=== PATIENT | male | born 1975 | race Caucasian/White ===

== ENCOUNTER 2020-01-02 14:35 | IRF | payer MEDICARE, SELFPAY ==
[2020-01-02 14:35] VITALS: BMI 31.5
--- NOTE | 2020-01-02 14:35 | ADMGEN ---
This patient, Jm Pillai, was admitted to [facility] Room 226-01. Patient/family oriented to hospital policies and general routines including ID bracelet, bed and alarms, visiting hours, pain management, procedures, bathroom and other care routines, personal items, smoking policy, room service/diet, and visiting hours. Valuables list has been completed. Information on how to activate the Rapid Response Team has been discussed. Patient/Family are encouraged to report perceived risks to care and to ask questions if they do not understand what they are told or what they should do.
[2020-01-02 15:38] VITALS: BMI 31.9
[2020-01-02 16:08] VITALS: BP 143/64; PULSE 63; RESP 20; TEMP 36.4; O2SAT 99
[2020-01-02 16:41] LABS: Glucose Point of Care 102 (65-105)
--- NOTE | 2020-01-02 18:10 | PM.CNNEP ---
Assessment and Plan Assessment and plan (1) End stage renal disease: Code(s): N18.6 - End stage renal disease Status: Chronic Assessment and Plan: HD tomorrow and continue M/W/F schedule follow electrolytes, volume status, and clearance (2) Status post below knee amputation of right lower extremity: Code(s): Z89.511 - Acquired absence of right leg below knee Status: Acute Assessment and Plan: local wound care PT/OT/rehab (3) Anemia: Code(s): D64.9 - Anemia, unspecified Status: Chronic Assessment and Plan: due to ESRD and recent operative intervention check iron studies Epogen with HD follow trend of H/H (4) Hypertension: Code(s): I10 - Essential (primary) hypertension Status: Acute Assessment and Plan: reasonable control at this time follow trend of hemodynamics (5) Renal osteodystrophy: Code(s): N25.0 - Renal osteodystrophy Status: Chronic Assessment and Plan: check phosphorus, calcium, and PTH adjust medications based on paramenters (6) Diabetes: Code(s): E11.9 - Type 2 diabetes mellitus without complications Status: Acute Assessment and Plan: follow accuchecks resume Lantus and SSI Will continue to follow. History of Present Illness Reason for Consult Consult date: 01/02/20 Reason for consult: end stage renal disease Chief Complaint Chief complaint: R BKA History of Present Illness Narrative: The patient is a very pleasant 44-year-old male with an extensive past medical history as outlined below who presented as a transfer from [facility] to the [facility] at [facility] for ongoing medical management as well as therapy following his recent hospitalization. The patient presented to [facility] on December 18, 2019 for worsening right diabetic foot wound. Approximately two weeks before his admission, his right foot wound had been doing reasonably well with ongoing follow-up with wound care. However, he presented to his vascular surgeon's office with worsening appearance in the last 24 hr prior to admission. His wound had deteriorated to the point where there was significant drainage and erythema associated with a malodorous smell. These changes were now progressing/streaking up on the dorsal aspect of his right foot with further deterioration of the wound. He reported no overt fever chills but given his history with wounds on his left lower extremity that resulted in surgical intervention (eventually required a left BKA) and his complex medical history, he was admitted the hospital with concerns for a cellulitis and possible osteomyelitis of his right foot.. During his hospitalization, intervention had already been done to try to improve the circulation in his right lower extremity via an angiogam but it would seem that this failed given the progression of his infection/wound. He was continued on broad-spectrum IV antibiotic therapy and vascular surgery was consulted for therapeutic options. It was discussed with the patient the option of a TMA versus BKA for definitive treatment of what was suspected to be a right foot osteomyelitis. The patient opted for a below-knee amputation as his left foot had the same issues and problems previously in spite of multiple surgical interventions in attempt to salvage that leg and it was ultimately fruitless - he eventually had to have a left BKA at that time with significant improvement following that intervention, hence, he opted for a right below-knee amputation this time around for his current situation. He subsequently underwent the right below-knee amputation without any issue although his hospital course was complicated by the fact that he had significant anemia requiring 5 units in total of packed red blood cell transfusions. Eventually, he was deemed stable not be transferred to next level of care [facility]
[2020-01-02] MEDS: DOCUSATE SODIUM 100 MG CAPSULE PO (18:24)
[2020-01-02] MEDS: GABAPENTIN 300 MG CAPSULE PO (18:24)
[2020-01-02] MEDS: OMEGA 3 POLYUNSAT FATTY ACIDS 1 GM CAP 2 GM PO (18:24)
[2020-01-02] MEDS: ATORVASTATIN 40 MG TABLET 80 MG PO (18:25)
[2020-01-02] MEDS: hydrALAZINE HCL 50 MG TABLET 100 MG PO (18:25)
[2020-01-02] MEDS: INSULIN ASPART (*BKC) 100 UNITS/ML SUB-Q (18:29)
[2020-01-02 21:25] VITALS: PULSE 62
[2020-01-02] MEDS: carvediloL 12.5 MG TABLET 37.5 MG PO (21:25)
[2020-01-02 21:30] LABS: Glucose Point of Care 94 (65-105)
--- NOTE | 2020-01-02 21:30 | PC.NURSE ---
pt accucheck 94 at HS. pt refused to take lantus at this time. updated.
[2020-01-02 22:00] VITALS: BP 172/68; PULSE 97; RESP 16; TEMP 36.5; O2SAT 61
[2020-01-03] VITALS (22 sets, daily range): BP systolic 138–174; BP diastolic 49–89; PULSE 60–72; RESP 14–20; TEMP 36.5–37; O2SAT 97–98; BMI 31.9
[2020-01-03 04:43] LABS: Basophils Absolute Auto 0.1 K/mm3 (0.0-0.1); Basophils Percent Auto 0.6 % (0.2-1.2); Eosinophils Absolute Auto 0.4 K/mm3 (0-0.3); Eosinophils Percent Auto 3.2 % (0-4.4); Immature Granulocyte Absolute 0.05 K/mm3 (0.00-0.031); Immature Granulocyte Percent A 0.5 % (0-0.5); Lymphocytes Absolute Auto 3.05 K/mm3 (0.9-3.2); Lymphocytes Percent Auto 27.7 % (18.3-44.2); Mean Corpuscular Hemoglobin 25.2 pg (26-34); Mean Corpuscular Volume 81.2 fl (80-100); Mean Platelet Volume 8.6 fl (7.4-10.4); Monocytes Absolute Auto 0.8 K/mm3 (0.1-0.6); Neutrophils Absolute Auto 6.7 K/mm3 (1.3-6.7); Platelet Count Result 419 k/mm3 (150-375); Red Blood Count 3.57 M/mm3 (4.6-6.20)
[2020-01-03 04:56] LABS: Albumin Level 3.6 g/dL (3.5-5.1); Anion Gap 13 mmol/L (8-16); Blood Urea Nitrogen 69 mg/dL (9-20); Carbon Dioxide 29 mmol/L (22-30); Chloride 92 mmol/L (98-107); Estimated CRCL calculation 12 ml/min; Estimated Glomerular Filt Rate 6; Glucose 107 mg/dL (75-110); Phosphorus 8.5 mg/dL (2.5-4.5); Potassium 4.6 mmol/L (3.4-5.0); Sodium 134 mmol/L (137-145)
[2020-01-03 05:08] LABS: Parathyroid Intact 134.8 pg/mL (7.5-53.5)
[2020-01-03 05:19] LABS: Iron 35 ug/dL (49-181)
[2020-01-03 05:29] LABS: Percent Iron Saturation 17 % (20-50)
[2020-01-03 05:54] LABS: Hepatitis B Surface Antigen Negative (Negative)
[2020-01-03 05:59] LABS: HAV RESULT Negative (Negative); Hepatitis B Core IgM Result Negative (Negative)
[2020-01-03 06:11] LABS: Hepatitis B Surface Anti Res Negative; Hepatitis C Virus Antibody Negative (Negative)
[2020-01-03 06:12] LABS: Vitamin D 25 Hydroxy 28.2 ng/mL
[2020-01-03 06:13] LABS: Hemoglobin A1C 6.2 % (<5.7)
[2020-01-03 06:59] LABS: Glucose Point of Care 90 (65-105)
[2020-01-03] MEDS: carvediloL 12.5 MG TABLET 37.5 MG PO ×2 (08:43→21:03)
[2020-01-03] MEDS: CALCIUM CARBONATE (OSCAL) 500 MG TABLET PO ×3 (08:43→18:02)
[2020-01-03] MEDS: lisinopriL 20 MG TABLET 40 MG PO (08:44)
[2020-01-03] MEDS: OMEGA 3 POLYUNSAT FATTY ACIDS 1 GM CAP 2 GM PO ×2 (08:44→18:01)
[2020-01-03] MEDS: GABAPENTIN 300 MG CAPSULE PO ×3 (08:45→18:02)
[2020-01-03] MEDS: amLODIPine BESYLATE 5 MG TABLET 10 MG PO (08:45)
[2020-01-03] MEDS: CLOPIDOGREL BISULFATE 75 MG TABLET PO (08:45)
[2020-01-03] MEDS: DOCUSATE SODIUM 100 MG CAPSULE PO ×2 (08:45→18:01)
[2020-01-03] MEDS: hydrALAZINE HCL 50 MG TABLET 100 MG PO ×3 (08:45→18:01)
[2020-01-03] MEDS: CHOLECALCIFEROL 1,000 UNITS TABLET 5000 UNITS PO (08:46)
[2020-01-03] MEDS: INSULIN GLARGINE (*BKC) 100 UNITS/ML 14 UNITS SUB-Q (08:58)
[2020-01-03] MEDS: SEVELAMER CARBONATE 800 MG TABLET PO ×3 (09:25→18:01)
--- NOTE | 2020-01-03 10:30 | PM.IMHP ---
H&P: HPI History of Present Illness Date/Time: 01/03/20 12:50 Chief complaint: R BKA Narrative: Jm Pillai is a 44 year old male The rehab impairment category is 66-urvtlpeuhx-uqgtg extremity The etiologic diagnosis is right nonhealing diabetic foot ulcer. He is status post right BKA This is a 44-year-old who has been here about 4 years ago with a past medical history of type 2 diabetes mellitus with complications including end-stage renal disease on hemodialysis Monday, hypertension, dyslipidemia left BKA with the prosthesis and history of diabetic foot infections peripheral vascular disease and also diabetic retinopathy for which he gets the injections at the local set up person office The patient presented to [facility] on December 18, 2019 after an office with with the Anoop marin. Patient reported that the day prior to his appointment he suffered from fever and chills. Of note the patient has been receiving antibiotics for his right foot infection as he did several years ago for his left foot infection for he had the BKA performed. The patient was initially started as an ulcer on the right big toe and quickly evolved to severe necrosis. A. On presentation to hospital the patient was running a fever up to 102. He also had leukocytosis of 15,600 and hemoglobin of 7.1. The patient was started on IV vancomycin and Zosyn. Vascular surgery was consulted for the nonhealing wound. After discussion about transmetatarsal amputation versus zaapr-brm-lxwl amputation it was decided the patient would undergo a meylm-rmf-wyot amputation and he did on December 23, [address] Calderón. Prior to this the patient had undergone multiple surgeries in the left foot and ultimately ended up with a wrwfq-iof-ujzr amputation before healing to place. He does have a prosthesis for the left BKA. Nephrology was consulted for inpatient dialysis. Patient's hemoglobin dropped to 6.7 he was transfused with 1 unit of packed RBCs. On December 22 hemoglobin dropped again and he was transfused with hemodialysis prior to surgery. He underwent right inlyg-yuy-yrsk amputation December 23, 2019. He is nonweightbearing to the right lower extremity and has a prosthetic leg for the left lower extremity. Postoperatively he has experienced acute blood loss a new acute postoperative pain and leukocytosis. The patient pain is currently controlled with oral analgesics. His anemia is stable with hemoglobin of 8.1. Luke leukocytosis is currently still elevated but is down trending and is being monitored. Patient remains afebrile and wound site looks good. Workup thus far has been negative for acute infection. The patient according to our screen was supposed to have been discharged to rehab and subcutaneous heparin for DVT prophylaxis however I do not see and there discharge orders. The patient has not traveled outside the [place] or had contact with someone who is ill that has traveled outside the [place] in the past 21 days. Patient has not traveled to an area of the [place] that is experiencing no transmission of the Coronavirus and has not had close personal contact with anyone that has. Patient does not have a fever. The patient is not experiencing lower respiratory illness symptoms. Therapy was initiated at the acute care facility and the patient was transferred to us from [facility] on January 02, 2020. The patient has had major surgeries in the 100 days prior to admission. The patient has had no falls in the past year. Patient has had no falls with injury in the past year. Past medical history Glaucoma bilateral eyes and diabetic retinopathy gets steroid injections every 6 weeks to 6 months, diabetic retinopathy cellulitis of the right foot, congestive heart failure, hyperlipidemia, hypertension, peripheral vascular disease, pneumonia in 2017, chronic kidney disease end-stage renal disease on hemodialysis, peripheral neuropathy, type 2 diabetes mellitus, obe
[2020-01-03 11:51] LABS: Glucose Point of Care 92 (65-105)
--- NOTE | 2020-01-03 12:47 | PCPTNOTE ---
Jm Monarodríguez was evaluated for a standard walker on 01/03/2020 by this physical therapist. The walker will resolve patient's mobility limitations and will be used for ADL's within the home. The patient can safely use the walker. ?The walker will resolve the patient?s mobility deficits, including transfers/gait/ADL's.
--- NOTE | 2020-01-03 12:52 | PCPTNOTE ---
Sonia Bell PT completed an inpatient rehab wheelchair evaluation on Jm Pillai on 01/03/2020. The patient is unable to safely and independently ambulate household distances due to their current impairments. Their diagnosis is R BKA and their impairments include decreased strength, decreased endurance, decreased range of motion, decreased balance, lower extremity weakness, and ataxia. Jm's weight bearing status is non weight-bearing on the right lower leg. The patient demonstrates significant functional mobility limitations that impair their ability to participate in mobility-related activities of daily living (MRADLs), including toileting, feeding, dressing, grooming, and bathing in the customary locations in the home. These limitations cannot be sufficiently resolved by the use of an appropriately fitted cane or walker. It is recommended that the patient utilize a wheelchair for functional mobility within the home in order to facilitate optimal safety, independence and participation in all MRADL's and adequately access their home environment on a regular basis. The patient's home provides adequate access between rooms, maneuvering space, and surfaces to accommodate the recommended wheelchair. The use of a wheelchair for functional mobility is strongly recommended and the patient is receptive to using the wheelchair. The use of this wheelchair will significantly improve the patient's ability to participate in MRADLS and the patient will use it on a regular basis in the home. This will facilitate optimal safety, independence, and participation. The patient has demonstrated sufficient physical and mental capabilities needed to safely propel a manual wheelchair that is provided in the home during a typical day. Recommended Wheelchair Frame: standard Recommended Wheelchair Size: 20 x 20 Recommended Wheelchair Cushion: standard Wheelchair Leg Recommendations: elevating detachable - Elevating legrests are recommended because the patient has a musculoskeletal condition or the presence of a cast or brace which prevents 90 degree flexion at the knee. Elevating legrests are recommended because the patient has significant edema of the lower extremities that requires an elevating legrest. - Anti-tippers are recommended due to patient demonstrating increased risk for falls. They would benefit from anti-tippers with added safety and stabilization. Sonia Bell PT ___01/03/20 Evaluating Therapist Date I agree with and certify that the above recommendation is medically necessary. Referring Physician Date I agree with and certify that the above recommendation is medically necessary. Referring Physician Date
--- NOTE | 2020-01-03 13:18 | PCPTNOTE ---
Jm missed 15 minutes of his physical therapy today. Patient had to leave for dialysis.
--- NOTE | 2020-01-03 14:28 | RPD ---
INDIVIDUALIZED PLAN OF CARE FOR Jm Pillai Brief Synthesis of Pre-Admission Screen, Post-Admission Evaluation and Therapy Evaluations: The patient presents to rehab with right non-healing diabetic foot ulcer. Comorbidities include type 2 diabetes mellitus with complications, end-stage renal disease on hemodialysis (M,W,F), hypertension, dyslipidemia, left BKA, diabetic foot infections, peripheral vascular disease, acute postoperative pain, acute blood loss anemia, leukocytosis, congestive heart failure. The complexity of the patient's medical management, nursing, and therapy needs require an inpatient rehab hospital stay with a physician-led interdisciplinary team approach. The patient?s needs will be best met in an intensive program vs. at a lower level of care. The patient requires physician services for medical oversight, management of post-op complications in the setting of present comorbidities, and pain management. Post-op complications have included leukocytosis, acute blood loss anemia and acute postoperative pain with phantom pain. The patient requires nursing services for anticoagulation therapy, DVT prophylactics, IV administration, infection protection, medication management and education, pressure relief, and wound care. Deficits include:ADLs, Balance, Endurance, Family Training/Education, Mobility, Pain Management, ROM, Safety, Strength, and Transfers Chief Nurse Executive/Case Management for: Discharge Planning and Patient/Family Counseling Physical Therapy: 5 days per week for 90 minutes. Treatments may include: Therapeutic Exercise, Gait Training, Neuromuscular Re-education, Transfer Training, Community Reintegration, Bed Mobility, Patient/Family Education, Wheelchair Mobility Group Therapy/Concurrent Therapy Rationales: -Improve attention span during functional activities in a distracted environment. -Enhance problem solving and/or adequate judgment skills during functional activities in a distracted environment. -Promote increased safety awareness in a distracted environment to reduce fall risk with functional tasks, transfers, and ambulation to allow a more safe, self-sufficient return to the home environment. -Improve dynamic balance skills to promote safety and independence with functional activities in a distracted environment for maximum gain. Occupational Therapy: 5 days per week for 90 minutes. Treatments may include: Therapeutic Exercise, Therapeutic Activity, Cognitive Training, Self-Care Transfer Training, Community Reintegration, Home Management, Patient/Family Education, Wheelchair Mobility Training, Energy Conservation Training Group Therapy/Concurrent Therapy Rationales: -Allow therapist to observe and teach generalization and carry-over of skills learned in individual therapy. -Enhance problem solving and sequencing skills during therapeutic activities in a distracted environment. -Promote increased safety awareness in a realistic setting to reduce fall risk with functional tasks due to visual and verbal distractions. -Increase functional level with ADLs, ADL transfers and use of adaptive equipment through therapeutic activities with others while promoting safety to allow a more safe, self-sufficient return home. Medical Prognosis: Good Anticipated Length of Stay: 10 days Rehab Goals: Eating Goal: 06-Independent Oral Hygiene Goal: 06-Independent Toileting Hygiene Goal: 06-Independent Shower/Bathe Self Goal: 06-Independent Upper Body Dressing Goal: 06-Independent Lower Body Dressing Goal: 06-Independent Putting On/Taking Off Footwear Goal: 09-Not Applicable Rolling Left and Right Goal: 06-Independent Sit to Lying Goal: 06-Independent Lying to Sitting on Side of Bed Goal: 06-Independent Sit to Stand Goal: 06-Independent Chair/Wyz-jv-Foehx Transfer Goal: 06-Independent Toilet Transfer Goal: 06-Independent Car Transfer Goal: 06-Independent Walk 10' Goal: 06-Independent Walk 50' with Two Turns Goal: 06-Independent Walk 150' Go
--- NOTE | 2020-01-03 15:02 | P.PNNP_ITS ---
Progress Note: A&P Assessment and Plan (1) End stage renal disease: Code(s): N18.6 - End stage renal disease Status: Chronic Assessment and Plan: * HD today and continue M// schedule * follow electrolytes, volume status, and clearance (2) Status post below knee amputation of right lower extremity: Code(s): Z89.511 - Acquired absence of right leg below knee Status: Acute Assessment and Plan: * local wound care * PT/OT/rehab (3) Anemia: Code(s): D64.9 - Anemia, unspecified Status: Chronic Assessment and Plan: * due to ESRD, recent operative intervention, and iron deficiency * IV venofer with HD (200mg x 5 doses) * Epogen with HD * follow trend of H/H (4) Hypertension: Code(s): I10 - Essential (primary) hypertension Status: Acute Assessment and Plan: * reasonable control at this time * follow trend of hemodynamics (5) Renal osteodystrophy: Code(s): N25.0 - Renal osteodystrophy Status: Chronic Assessment and Plan: * calcium and PTH acceptable * phosphorus elevated * start renvala as phosphate binder * adjust medications based on paramenters (6) Diabetes: Code(s): E11.9 - Type 2 diabetes mellitus without complications Status: Acute Assessment and Plan: * follow accuchecks * resume Lantus and SSI Will continue to follow. Subjective Date/time seen: 01/03/20 15:02 Tolerating dialysis at the time of my visit (seen on HD at ~ 2:50PM); no new issues or problems to report; no events overnight or earlier this AM. Exam Narrative: Exam Narrative: General: WD/WN male/female in NAD Heart: normal S1 and S2; no rub Lungs: clear to auscultation Abdomen: soft, nontender, nondistended, positive bowel sounds Extremities: no cyanosis or clubbing; no edema; s/p bilateral BKAs Skin: warm and dry Objective Data Vital Signs Vital Signs: Vital Signs Temp Pulse Resp BP Pulse Ox 01/03/20 14:45 67 163/77 H 01/03/20 14:30 66 159/75 H 01/03/20 14:15 66 156/75 H 01/03/20 14:00 65 148/72 H 01/03/20 13:45 65 155/73 H 01/03/20 13:40 66 153/72 H 01/03/20 13:25 36.7 C 66 18 155/70 H 01/03/20 08:43 72 01/03/20 05:45 36.5 C 67 14 167/71 H 97 01/02/20 22:00 36.5 C 97 16 172/68 H 61 L 01/02/20 21:25 62 01/02/20 16:08 36.4 C L 63 20 143/64 H 99 Intake/Output Intake/Output: Intake & Output 12/31/19 01/01/20 01/02/20 01/03/20 23:59 23:59 23:59 23:59 Intake Total 240 480 Balance 240 480 Meds/Results Medications: Active Medications Generic Name Dose Route Start Last Admin Trade Name Freq PRN Reason Stop Dose Admin Hydrocodone Bitart/Acetaminophen 1 tab 01/02/20 17:12 [place] 5-325 Mg PO PRN PRN Pain (Scale Score 7-10) Amlodipine Besylate 10 mg 01/03/20 09:00 01/03/20 08:45 Norvasc PO 10 mg DAILY STEVEN Administration Atorvastatin Calcium 80 mg 01/02/20 17:20 01/02/20 21:21 Lipitor PO Not Given HS [facility] Calcium Carbonate 500 mg 01/03/20 08:00 01/03/20 12:38 Oscal 500 Mg PO 500 mg TIDWM [facility] Administra
--- NOTE | 2020-01-03 15:02 | PM.PNNEP ---
Progress Note: A&P Assessment and Plan (1) End stage renal disease: Code(s): N18.6 - End stage renal disease Status: Chronic Assessment and Plan: HD today and continue M/W/F schedule follow electrolytes, volume status, and clearance (2) Status post below knee amputation of right lower extremity: Code(s): Z89.511 - Acquired absence of right leg below knee Status: Acute Assessment and Plan: local wound care PT/OT/rehab (3) Anemia: Code(s): D64.9 - Anemia, unspecified Status: Chronic Assessment and Plan: due to ESRD, recent operative intervention, and iron deficiency IV venofer with HD (200mg x 5 doses) Epogen with HD follow trend of H/H (4) Hypertension: Code(s): I10 - Essential (primary) hypertension Status: Acute Assessment and Plan: reasonable control at this time follow trend of hemodynamics (5) Renal osteodystrophy: Code(s): N25.0 - Renal osteodystrophy Status: Chronic Assessment and Plan: calcium and PTH acceptable phosphorus elevated start renvala as phosphate binder adjust medications based on paramenters (6) Diabetes: Code(s): E11.9 - Type 2 diabetes mellitus without complications Status: Acute Assessment and Plan: follow accuchecks resume Lantus and SSI Will continue to follow. Subjective Date/time seen: 01/03/20 15:02 Tolerating dialysis at the time of my visit (seen on HD at ~ 2:50PM); no new issues or problems to report; no events overnight or earlier this AM. Exam Narrative: Exam Narrative: General: WD/WN male/female in NAD Heart: normal S1 and S2; no rub Lungs: clear to auscultation Abdomen: soft, nontender, nondistended, positive bowel sounds Extremities: no cyanosis or clubbing; no edema; s/p bilateral BKAs Skin: warm and dry Objective Data Vital Signs Vital Signs: Vital Signs Temp Pulse Resp BP Pulse Ox 01/03/20 14:45 67 163/77 H 01/03/20 14:30 66 159/75 H 01/03/20 14:15 66 156/75 H 01/03/20 14:00 65 148/72 H 01/03/20 13:45 65 155/73 H 01/03/20 13:40 66 153/72 H 01/03/20 13:25 36.7 C 66 18 155/70 H 01/03/20 08:43 72 01/03/20 05:45 36.5 C 67 14 167/71 H 97 01/02/20 22:00 36.5 C 97 16 172/68 H 61 L 01/02/20 21:25 62 01/02/20 16:08 36.4 C L 63 20 143/64 H 99 Intake/Output Intake/Output: Intake & Output 12/31/19 01/01/20 01/02/20 01/03/20 23:59 23:59 23:59 23:59 Intake Total 240 480 Balance 240 480 Meds/Results Medications: Active Medications Generic Name Dose Route Start Last Admin Trade Name Freq PRN Reason Stop Dose Admin Hydrocodone Bitart/Acetaminophen 1 tab 01/02/20 17:12 [place] 5-325 Mg PO PRN PRN Pain (Scale Score 7-10) Amlodipine Besylate 10 mg 01/03/20 09:00 01/03/20 08:45 Norvasc PO 10 mg DAILY STEVEN Administration Atorvastatin Calcium 80 mg 01/02/20 17:20 01/02/20 21:21 Lipitor PO Not Given HS STEVEN Calcium Carbonate 500 mg 01/03/20 08:00 01/03/20 12:38 Oscal 500 Mg PO 500 mg TIDWM STEVEN Administration Carvedilol 37.5 mg 01/02/20 21:00 01/03/20 08:43 Coreg PO 37.5 mg Q12HR STEVEN Administration Clopidogrel Bisulfate 75 mg 01/03/20 09:00 01/03/20 08:45 Plavix PO 75 mg DAILY STEVEN Administration Dextrose 12.5 gm 01/02/20 15:41 Dextrose 50% Syringe IV PUSH PRN PRN Hypoglycemia Protocol Docusate Sodium 100 mg 01/02/20 17:25 01/03/20 08:45 Colace Capsule PO 100 mg BID STEVEN Administration Epoetin Chan-epbx 10,000 units 01/03/20 19:09 Retacrit IV PUSH 01/03/20 19:10 ONCE ONE Fish Oil 2 gm 01/02/20 17:25 01/03/20 08:44 Lovaza PO 2 gm BID STEVEN Administration Furosemide 40 mg 01/04/20 09:00 Lasix Tablet PO [id number] STEVEN Gabapentin 300 mg 01/02/20 17:25 01/03/20 12:37 Neurontin PO 300 mg T
--- NOTE | 2020-01-03 15:09 | PCOTNOTE ---
Pt was unable to receive full minutes for OT services on this date due to leaving for dialysis, with pt only able to get 58 minutes total for OT today. Will continue per POC duration and frequency tomorrow.
[2020-01-03] MEDS: EPOETIN ALFA-EPBX 10,000 UNITS/ML VIAL 10000 UNITS IV PUSH (15:44)
[2020-01-03 18:08] LABS: Glucose Point of Care 91 (65-105)
[2020-01-03] MEDS: ATORVASTATIN 40 MG TABLET 80 MG PO (21:03)
[2020-01-03 21:11] LABS: Glucose Point of Care 106 (65-105)
--- NOTE | 2020-01-03 21:18 | PC.NURSE ---
accuchecks in 's today, now 106- pt refuses anjana alvarenga notifstacey
[2020-01-04 05:53] VITALS: BP 134/60; PULSE 62; RESP 18; TEMP 36.6; O2SAT 93
[2020-01-04 06:51] LABS: Glucose Point of Care 93 (65-105)
[2020-01-04] MEDS: CALCIUM CARBONATE (OSCAL) 500 MG TABLET PO ×3 (09:11→18:37)
[2020-01-04 09:12] VITALS: PULSE 62
[2020-01-04] MEDS: SEVELAMER CARBONATE 800 MG TABLET PO ×3 (09:12→18:39)
[2020-01-04] MEDS: amLODIPine BESYLATE 5 MG TABLET 10 MG PO (09:12)
[2020-01-04] MEDS: carvediloL 12.5 MG TABLET 37.5 MG PO ×2 (09:12→21:02)
[2020-01-04] MEDS: CLOPIDOGREL BISULFATE 75 MG TABLET PO (09:13)
[2020-01-04] MEDS: CHOLECALCIFEROL 1,000 UNITS TABLET 5000 UNITS PO (09:13)
[2020-01-04] MEDS: FUROSEMIDE 40 MG TABLET PO (09:13)
[2020-01-04] MEDS: DOCUSATE SODIUM 100 MG CAPSULE PO ×2 (09:13→18:37)
[2020-01-04] MEDS: hydrALAZINE HCL 50 MG TABLET 100 MG PO ×3 (09:14→18:38)
[2020-01-04] MEDS: lisinopriL 20 MG TABLET 40 MG PO (09:14)
[2020-01-04] MEDS: GABAPENTIN 300 MG CAPSULE PO ×3 (09:14→18:38)
[2020-01-04] MEDS: OMEGA 3 POLYUNSAT FATTY ACIDS 1 GM CAP 2 GM PO ×2 (09:14→18:38)
[2020-01-04 12:24] LABS: Glucose Point of Care 93 (65-105)
--- NOTE | 2020-01-04 12:58 | WPDNEURORHBP ---
Subjective Date/time seen: 01/04/20 12:58 44 years old young male admitted to the rehab for the right BKA for nonhealing diabetic foot ulcer in addition to the history of 1. Type 2 diabetes mellitus 2. End-stage renal disease requiring hemodialysis on Monday 3. Hypertension 4. Dyslipidemia 5. Peripheral vascular disease 6. Diabetic retinopathy requiring the injections. 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 teacher for end-stage renal disease with renal osteodystrophy Review of Systems Review of Systems: All systems reviewed & are unremarkable except as noted in HPI and below Functional Status Ambulation Ability Ability to Ambulate 10 Feet: Minimum Assistance X 1 Ambulation Assistive Devices: Walker, Standard Transfers Ability Ability to Transfer In/Out of Chair: Contact Guard Exam Narrative: Exam Narrative: on examination awake alert cooperative ear nose throat examination normal no drainage mucous membranes moist eyes with bilateral diabetic retinopathy as per the history decreased visual acuity but able to function fairly well neck is supple with no JVD no meningeal signs heart regular lungs clear abdomen is soft normal bowel sounds neurological is awake alert oriented x3 is speech nor dysphasic no dysarthric no dysphonia needs assistance in daily activities of living using the left lower extremity prosthesis to ambulate right BKA is fresh wound is clean Objective Data Vital Signs Vital Signs: Vital Signs - 24 hr 01/03/20 13:25 01/03/20 13:40 01/03/20 13:45 Temperature 36.7 C Pulse Rate 66 66 65 Respiratory Rate 18 Blood Pressure 155/70 H 153/72 H 155/73 H Pulse Oximetry 01/03/20 14:00 01/03/20 14:15 01/03/20 14:30 Temperature 36.8 C Pulse Rate 64 66 66 Respiratory Rate 20 Blood Pressure 138/49 L 156/75 H 159/75 H Pulse Oximetry 98 01/03/20 14:45 01/03/20 15:00 01/03/20 15:15 Temperature Pulse Rate 67 66 65 Respiratory Rate Blood Pressure 163/77 H 152/78 H 167/80 H Pulse Oximetry 01/03/20 15:30 01/03/20 15:45 01/03/20 16:01 Temperature Pulse Rate 67 65 65 Respiratory Rate Blood Pressure 173/57 H 166/80 H 171/78 H Pulse Oximetry 01/03/20 16:15 01/03/20 16:30 01/03/20 16:45 Temperature Pulse Rate 65 66 66 Respiratory Rate Blood Pressure 169/82 H 174/84 H 162/89 H Pulse Oximetry 01/03/20 17:00 01/03/20 17:20 01/03/20 21:03 Temperature Pulse Rate 66 66 66 Respiratory Rate Blood Pressure 164/81 H 168/71 H Pulse Oximetry 01/03/20 21:23 01/04/20 05:53 01/04/20 09:12 Temperature 36.6 C 36.6 C Pulse Rate 60 62 62 Respiratory Rate 20 18 Blood Pressure 145/58 H 134/60 Pulse Oximetry 98 93 Intake/Output Intake/Output: Intake & Output 01/01/20 01/02/20 01/03/20 01/04/20 23:59 23:59 23:59 23:59 Intake Total 240 960 480 Output Total 3400 Balance 240 -2440 480 Meds/Results Medications: Active Medications Generic Name Dose Route Start Last Admin Trade Name Freq PRN Reason Stop Dose Admin Hydrocodone Bitart/Acetaminophen 1 tab 01/02/20 17:12 [place] 5-325 Mg PO PRN PRN Pain (Scale Score 7-10) Amlodipine Besylate 10 mg 01/03/20 09:00 01/04/20 09:12 Norvasc PO 10 mg DAILY STEVEN Administration Atorvastatin Calcium 80 mg 01/02/20 17:20 01/03/20 21:03 Lipitor PO 80 mg HS STEVEN Administration Calcium Carbonate 500 mg 01/03/20 08:00 01/04/20 12:48 Oscal 500 Mg PO 500 mg TIDWM STEVEN Administration Carvedilol 37.5 mg 01/02/20 21:00 01/04/20 09:12 Coreg PO 37.5 mg Q12HR STEVEN Administration Clopidogrel Bisulfate 75 mg 01/03/20 09:00 01/04/20 09:13 Plavix PO 75 mg DAILY STEVEN Administration Dextrose 12.5 gm 01/02/20 15:41 Dextrose 50% Syringe IV PUSH PRN PRN Hypoglycemia Protocol Docusate Sodium 100 mg 01/02/20 17:25 01/04/20 09:13 Colace Capsule PO 100 mg BID STEVEN Administration Fish Oil 2 gm 01/02/20 17:25 0
[2020-01-04 14:00] VITALS: BP 147/56; PULSE 68; RESP 16; TEMP 36.6; O2SAT 96
[2020-01-04 17:10] LABS: Glucose Point of Care 99 (65-105)
[2020-01-04 21:02] VITALS: PULSE 68
[2020-01-04] MEDS: ATORVASTATIN 40 MG TABLET 80 MG PO (21:02)
[2020-01-04 21:04] LABS: Glucose Point of Care 109 (65-105)
[2020-01-04 22:00] VITALS: BP 151/62; PULSE 74; RESP 18; TEMP 37; O2SAT 97
--- NOTE | 2020-01-04 22:38 | PC.NURSE ---
accucheck 109 at hs- refuses romy- dr mei aware
[2020-01-05 05:15] VITALS: BP 135/57; PULSE 62; RESP 18; TEMP 36.5; O2SAT 95
[2020-01-05 06:46] LABS: Glucose Point of Care 103 (65-105)
[2020-01-05 09:00] VITALS: PULSE 62
[2020-01-05] MEDS: amLODIPine BESYLATE 5 MG TABLET 10 MG PO (09:00)
[2020-01-05] MEDS: carvediloL 12.5 MG TABLET 37.5 MG PO ×2 (09:00→22:20)
[2020-01-05] MEDS: lisinopriL 20 MG TABLET 40 MG PO (09:00)
[2020-01-05] MEDS: SEVELAMER CARBONATE 800 MG TABLET PO ×3 (09:00→17:43)
[2020-01-05] MEDS: DOCUSATE SODIUM 100 MG CAPSULE PO ×2 (09:00→17:42)
[2020-01-05] MEDS: hydrALAZINE HCL 50 MG TABLET 100 MG PO ×3 (09:02→17:41)
[2020-01-05] MEDS: CALCIUM CARBONATE (OSCAL) 500 MG TABLET PO ×3 (09:02→17:41)
[2020-01-05] MEDS: CHOLECALCIFEROL 1,000 UNITS TABLET 5000 UNITS PO (09:02)
[2020-01-05] MEDS: FUROSEMIDE 40 MG TABLET PO (09:02)
[2020-01-05] MEDS: GABAPENTIN 300 MG CAPSULE PO ×3 (09:03→17:42)
[2020-01-05] MEDS: CLOPIDOGREL BISULFATE 75 MG TABLET PO (09:03)
[2020-01-05] MEDS: OMEGA 3 POLYUNSAT FATTY ACIDS 1 GM CAP 2 GM PO ×2 (09:04→17:42)
--- NOTE | 2020-01-05 11:49 | PC.NURSE ---
Late entry for 01/04/20: Per Dr. Ortiz, continue to monitor blood sugars for a few days; has been running 90-110s so we have been holding both doses of Lantus, which patient states he does as well at home and Dr. Ortiz is aware of and approved.
[2020-01-05 12:04] LABS: Glucose Point of Care 114 (65-105)
[2020-01-05 14:00] VITALS: BP 132/53; PULSE 64; RESP 20; TEMP 36.6; O2SAT 100
[2020-01-05 17:06] LABS: Glucose Point of Care 138 (65-105)
[2020-01-05 20:20] LABS: Glucose Point of Care 117 (65-105)
[2020-01-05 22:00] VITALS: BP 162/57; PULSE 66; RESP 16; TEMP 36.1; O2SAT 99
[2020-01-05 22:20] VITALS: PULSE 66
[2020-01-05] MEDS: ATORVASTATIN 40 MG TABLET 80 MG PO (22:20)
[2020-01-06] VITALS (20 sets, daily range): BP systolic 132–178; BP diastolic 57–85; PULSE 60–67; RESP 16–18; TEMP 36.3–37; O2SAT 97–100
[2020-01-06 07:16] LABS: Glucose Point of Care 98 (65-105)
[2020-01-06] MEDS: CALCIUM CARBONATE (OSCAL) 500 MG TABLET PO ×3 (09:26→18:18)
[2020-01-06] MEDS: SEVELAMER CARBONATE 800 MG TABLET PO ×3 (09:26→18:19)
[2020-01-06] MEDS: carvediloL 12.5 MG TABLET 37.5 MG PO ×2 (09:28→21:06)
[2020-01-06] MEDS: amLODIPine BESYLATE 5 MG TABLET 10 MG PO (09:28)
[2020-01-06] MEDS: CHOLECALCIFEROL 1,000 UNITS TABLET 5000 UNITS PO (09:29)
[2020-01-06] MEDS: DOCUSATE SODIUM 100 MG CAPSULE PO ×2 (09:30→18:18)
[2020-01-06] MEDS: GABAPENTIN 300 MG CAPSULE PO ×3 (09:30→18:19)
[2020-01-06] MEDS: CLOPIDOGREL BISULFATE 75 MG TABLET PO (09:30)
[2020-01-06] MEDS: OMEGA 3 POLYUNSAT FATTY ACIDS 1 GM CAP 2 GM PO ×2 (09:31→18:19)
[2020-01-06] MEDS: hydrALAZINE HCL 50 MG TABLET 100 MG PO ×3 (09:31→18:19)
[2020-01-06] MEDS: lisinopriL 20 MG TABLET 40 MG PO (09:31)
[2020-01-06] MEDS: INSULIN GLARGINE (*BKC) 100 UNITS/ML 14 UNITS SUB-Q (09:39)
--- NOTE | 2020-01-06 10:31 | WPDNEURORHBP ---
Subjective Date/time seen: 01/06/20 10:31 44 years old with right BKA for nonhealing diabetic foot ulcer in addition to history of type 2 diabetes mellitus, end-stage renal disease requiring hemodialysis, dyslipidemia, peripheral vascular disease, and diabetic retinopathy requiring local intra-ocular injections and also end-stage renal disease with renal osteodystrophy Review of Systems Review of Systems: All systems reviewed & are unremarkable except as noted in HPI and below Functional Status Ambulation Ability Ability to Ambulate 10 Feet: Contact Guard Ambulation Assistive Devices: Walker, Standard Transfers Ability Ability to Transfer In/Out of Chair: Independent Exam Narrative: Exam Narrative: on examination awake alert ear nose throat examination normal no mucus drainage neck is supple with no JVD normal range of motion heart regular lungs clear neuro examination is essentially unchanged Objective Data Vital Signs Vital Signs: Vital Signs - 24 hr 01/05/20 14:00 01/05/20 22:00 01/05/20 22:20 Temperature 36.6 C 36.1 C L Pulse Rate 64 66 66 Respiratory Rate 20 16 Blood Pressure 132/53 L 162/57 H Pulse Oximetry 100 99 01/06/20 06:00 01/06/20 09:28 Temperature 36.8 C Pulse Rate 67 67 Respiratory Rate 16 Blood Pressure 142/67 H Pulse Oximetry 97 Intake/Output Intake/Output: Intake & Output 01/03/20 01/04/20 01/05/20 01/06/20 23:59 23:59 23:59 23:59 Intake Total 960 1080 720 480 Output Total 3400 Balance -2440 1080 720 480 Meds/Results Medications: Active Medications Generic Name Dose Route Start Last Admin Trade Name Freq PRN Reason Stop Dose Admin Hydrocodone Bitart/Acetaminophen 1 tab 01/02/20 17:12 [place] 5-325 Mg PO PRN PRN Pain (Scale Score 7-10) Amlodipine Besylate 10 mg 01/03/20 09:00 01/06/20 09:28 Norvasc PO 10 mg DAILY STEVEN Administration Atorvastatin Calcium 80 mg 01/02/20 17:20 01/05/20 22:20 Lipitor PO 80 mg HS STEVEN Administration Calcium Carbonate 500 mg 01/03/20 08:00 01/06/20 09:26 Oscal 500 Mg PO 500 mg TIDWM STEVEN Administration Carvedilol 37.5 mg 01/02/20 21:00 01/06/20 09:28 Coreg PO 37.5 mg Q12HR STEVEN Administration Clopidogrel Bisulfate 75 mg 01/03/20 09:00 01/06/20 09:30 Plavix PO 75 mg DAILY STEVEN Administration Dextrose 12.5 gm 01/02/20 15:41 Dextrose 50% Syringe IV PUSH PRN PRN Hypoglycemia Protocol Docusate Sodium 100 mg 01/02/20 17:25 01/06/20 09:30 Colace Capsule PO 100 mg BID STEVEN Administration Epoetin Chan-epbx 10,000 units 01/06/20 18:45 Retacrit IV PUSH 01/06/20 18:46 ONCE ONE Fish Oil 2 gm 01/02/20 17:25 01/06/20 09:31 Lovaza PO 2 gm BID STEVEN Administration Furosemide 40 mg 01/04/20 09:00 01/05/20 09:02 Lasix Tablet PO 40 mg [id number] STEVEN Administration Gabapentin 300 mg 01/02/20 17:25 01/06/20 09:30 Neurontin PO 300 mg TID STEVEN Administration Glucagon 1 mg 01/02/20 15:41 Glucagon For Inj IM PRN PRN Hypoglycemia Protocol Glucose 15 gm 01/02/20 15:41 Glutose 15 PO PRN PRN Hypoglycemia Protocol Hydralazine HCl 100 mg 01/02/20 17:25 01/06/20 09:31 Apresoline Tablet PO 100 mg TID STEVEN Administration Dextrose 1,000 mls @ 100 mls/hr 01/02/20 15:41 Dextrose 5% 1,000 Ml IVPB PRN PRN Hypoglycemia Protocol Albumin Human 50 mls @ 999 mls/hr 01/03/20 07:09 Albutein IVPB 02/02/20 07:10 Q10M PRN HYPOTENSION Iron Sucrose 200 mg/ Sodium 60 mls @ 220 mls/hr 01/03/20 19:15 Chloride IVPB 01/13/20 10:17 [id number] [facility] Insulin Aspart 2 - 5 units 01/02/20 17:00 01/06/20 09:26 Novolog SUB-Q Not Given TIDWM [facility] Protocol Insulin Glargine 14 units 01/02/20 21:00 01/06/20 09:39 Lantus SUB-Q 14 units Q12H STEVEN Administration Lisinopril 40 mg 01/03/20 09:00 01/06/20 09:31 [place]
[2020-01-06 12:00] LABS: Glucose Point of Care 113 (65-105)
--- NOTE | 2020-01-06 16:37 | P.PNNP_ITS ---
Progress Note: A&P Assessment and Plan (1) End stage renal disease: Code(s): N18.6 - End stage renal disease Status: Chronic Assessment and Plan: * HD today and continue M// schedule * follow electrolytes, volume status, and clearance (2) Status post below knee amputation of right lower extremity: Code(s): Z89.511 - Acquired absence of right leg below knee Status: Acute Assessment and Plan: * local wound care * PT/OT/rehab (3) Anemia: Code(s): D64.9 - Anemia, unspecified Status: Chronic Assessment and Plan: * due to ESRD, recent operative intervention, and iron deficiency * IV venofer with HD (200mg x 5 doses) * Epogen with HD * follow trend of H/H (4) Hypertension: Code(s): I10 - Essential (primary) hypertension Status: Acute Assessment and Plan: * reasonable control at this time * follow trend of hemodynamics (5) Renal osteodystrophy: Code(s): N25.0 - Renal osteodystrophy Status: Chronic Assessment and Plan: * calcium and PTH acceptable * phosphorus elevated by last check * started on renvela as phosphate binder * adjust medications based on paramenters (6) Diabetes: Code(s): E11.9 - Type 2 diabetes mellitus without complications Status: Acute Assessment and Plan: * follow accuchecks * resume Lantus and SSI Will continue to follow. Subjective Date/time seen: 01/06/20 16:37 Tolerating dialysis at the time of my visit (seen on HD at ~ 4:00PM); sleeping comfortably during treatment; no apparent distress noted; working with PT/OT as tolerated; no events overnight or earlier this AM. Exam Narrative: Exam Narrative: General: WD/WN male/female in NAD Heart: normal S1 and S2; no rub Lungs: clear to auscultation Abdomen: soft, nontender, nondistended, positive bowel sounds Extremities: no cyanosis or clubbing; no edema; s/p bilateral BKAs Skin: warm and intact Objective Data Vital Signs Vital Signs: Vital Signs Temp Pulse Resp BP Pulse Ox 01/06/20 16:30 62 159/78 H 01/06/20 16:25 62 156/80 H 01/06/20 16:00 62 150/76 H 01/06/20 15:45 62 143/74 H 01/06/20 15:30 62 144/77 H 01/06/20 15:21 36.3 C L 63 16 148/76 H 01/06/20 15:15 61 150/79 H 01/06/20 15:00 62 157/74 H 01/06/20 14:52 60 146/62 H 01/06/20 14:00 36.3 C L 62 18 132/57 L 100 01/06/20 09:28 67 01/06/20 06:00 36.8 C 67 16 142/67 H 97 01/05/20 22:20 66 01/05/20 22:00 36.1 C L 66 16 162/57 H 99 Intake/Output Intake/Output: Intake & Output 01/03/20 01/04/20 01/05/20 01/06/20 23:59 23:59 23:59 23:59 Intake Total 960 5691 743 1182 Output Total 3400 Balance -2440 7080 897 2706 Meds/Results Medications: Active Medications Generic Name Dose Route Start Last Admin Trade Name Freq PRN Reason Stop Dose Admin Hydrocodone Bitart/Acetaminophen 1 tab 01/02/20 17:12 [place] 5-325 Mg PO PRN PRN Pain (Scale Score 7-10) Amlodipine Besylate 10 mg 01/03/20 09:00 01/06/20 09:28 Norvasc PO 10 mg DAILY STEVEN Administration Atorvastatin Calcium 80 mg 0
--- NOTE | 2020-01-06 16:37 | PM.PNNEP ---
Progress Note: A&P Assessment and Plan (1) End stage renal disease: Code(s): N18.6 - End stage renal disease Status: Chronic Assessment and Plan: HD today and continue M/W/F schedule follow electrolytes, volume status, and clearance (2) Status post below knee amputation of right lower extremity: Code(s): Z89.511 - Acquired absence of right leg below knee Status: Acute Assessment and Plan: local wound care PT/OT/rehab (3) Anemia: Code(s): D64.9 - Anemia, unspecified Status: Chronic Assessment and Plan: due to ESRD, recent operative intervention, and iron deficiency IV venofer with HD (200mg x 5 doses) Epogen with HD follow trend of H/H (4) Hypertension: Code(s): I10 - Essential (primary) hypertension Status: Acute Assessment and Plan: reasonable control at this time follow trend of hemodynamics (5) Renal osteodystrophy: Code(s): N25.0 - Renal osteodystrophy Status: Chronic Assessment and Plan: calcium and PTH acceptable phosphorus elevated by last check started on renvela as phosphate binder adjust medications based on paramenters (6) Diabetes: Code(s): E11.9 - Type 2 diabetes mellitus without complications Status: Acute Assessment and Plan: follow accuchecks resume Lantus and SSI Will continue to follow. Subjective Date/time seen: 01/06/20 16:37 Tolerating dialysis at the time of my visit (seen on HD at ~ 4:00PM); sleeping comfortably during treatment; no apparent distress noted; working with PT/OT as tolerated; no events overnight or earlier this AM. Exam Narrative: Exam Narrative: General: WD/WN male/female in NAD Heart: normal S1 and S2; no rub Lungs: clear to auscultation Abdomen: soft, nontender, nondistended, positive bowel sounds Extremities: no cyanosis or clubbing; no edema; s/p bilateral BKAs Skin: warm and intact Objective Data Vital Signs Vital Signs: Vital Signs Temp Pulse Resp BP Pulse Ox 01/06/20 16:30 62 159/78 H 01/06/20 16:25 62 156/80 H 01/06/20 16:00 62 150/76 H 01/06/20 15:45 62 143/74 H 09/28/20 15:30 62 144/77 H 01/06/20 15:21 36.3 C L 63 16 148/76 H 01/06/20 15:15 61 150/79 H 01/06/20 15:00 62 157/74 H 01/06/20 14:52 60 146/62 H 01/06/20 14:00 36.3 C L 62 18 132/57 L 100 01/06/20 09:28 67 01/06/20 06:00 36.8 C 67 16 142/67 H 97 01/05/20 22:20 66 01/05/20 22:00 36.1 C L 66 16 162/57 H 99 Intake/Output Intake/Output: Intake & Output 01/03/20 01/04/20 01/05/20 01/06/20 23:59 23:59 23:59 23:59 Intake Total 960 1640 312 0475 Output Total 3400 Balance -2440 5966 599 3806 Meds/Results Medications: Active Medications Generic Name Dose Route Start Last Admin Trade Name Freq PRN Reason Stop Dose Admin Hydrocodone Bitart/Acetaminophen 1 tab 01/02/20 17:12 [place] 5-325 Mg PO PRN PRN Pain (Scale Score 7-10) Amlodipine Besylate 10 mg 01/03/20 09:00 01/06/20 09:28 Norvasc PO 10 mg DAILY STEVEN Administration Atorvastatin Calcium 80 mg 01/02/20 17:20 01/05/20 22:20 Lipitor PO 80 mg HS STEVEN Administration Calcium Carbonate 500 mg 01/03/20 08:00 01/06/20 12:04 Oscal 500 Mg PO 500 mg TIDWM STEVEN Administration Carvedilol 37.5 mg 01/02/20 21:00 01/06/20 09:28 Coreg PO 37.5 mg Q12HR STEVEN Administration Clopidogrel Bisulfate 75 mg 01/03/20 09:00 01/06/20 09:30 Plavix PO 75 mg DAILY STEVEN Administration Dextrose 12.5 gm 01/02/20 15:41 Dextrose 50% Syringe IV PUSH PRN PRN Hypoglycemia Protocol Docusate Sodium 100 mg 01/02/20 17:25 01/06/20 09:30 Colace Capsule PO 100 mg BID STEVEN Administration Epoetin Chan-epbx 10,000 units 01/06/20 18:45 Retacrit IV PUSH 01/06/20 18:46 ONCE ONE Fish Oil 2 gm 01/02/20 17:25 01/06/20 09:31 Lo
[2020-01-06] MEDS: EPOETIN ALFA-EPBX 10,000 UNITS/ML VIAL 10000 UNITS IV PUSH (17:14)
[2020-01-06] MEDS: HEPARIN SODIUM 1,000 UNITS/ML VIAL 5000 UNITS (18:00)
[2020-01-06 18:18] LABS: Glucose Point of Care 89 (65-105)
[2020-01-06 20:45] LABS: Glucose Point of Care 91 (65-105)
[2020-01-06] MEDS: ATORVASTATIN 40 MG TABLET 80 MG PO (21:06)
[2020-01-07 05:12] VITALS: BP 150/66; PULSE 70; RESP 18; TEMP 36.6; O2SAT 96
[2020-01-07 06:51] LABS: Glucose Point of Care 91 (65-105)
[2020-01-07] MEDS: SEVELAMER CARBONATE 800 MG TABLET PO ×3 (08:03→17:54)
[2020-01-07] MEDS: CALCIUM CARBONATE (OSCAL) 500 MG TABLET PO ×3 (08:03→17:54)
[2020-01-07 08:04] VITALS: PULSE 70
[2020-01-07] MEDS: CHOLECALCIFEROL 1,000 UNITS TABLET 5000 UNITS PO (08:04)
[2020-01-07] MEDS: carvediloL 12.5 MG TABLET 37.5 MG PO ×2 (08:04→20:40)
[2020-01-07] MEDS: amLODIPine BESYLATE 5 MG TABLET 10 MG PO (08:04)
[2020-01-07] MEDS: OMEGA 3 POLYUNSAT FATTY ACIDS 1 GM CAP 2 GM PO ×2 (08:05→17:54)
[2020-01-07] MEDS: hydrALAZINE HCL 50 MG TABLET 100 MG PO ×3 (08:05→17:54)
[2020-01-07] MEDS: FUROSEMIDE 40 MG TABLET PO (08:06)
[2020-01-07] MEDS: GABAPENTIN 300 MG CAPSULE PO ×3 (08:06→17:54)
[2020-01-07] MEDS: DOCUSATE SODIUM 100 MG CAPSULE PO ×2 (08:14→17:54)
[2020-01-07] MEDS: CLOPIDOGREL BISULFATE 75 MG TABLET PO (08:14)
[2020-01-07] MEDS: lisinopriL 20 MG TABLET 40 MG PO (08:15)
[2020-01-07 12:03] LABS: Glucose Point of Care 104 (65-105)
[2020-01-07 14:00] VITALS: BP 128/51; PULSE 64; RESP 20; TEMP 36.4; O2SAT 94
--- NOTE | 2020-01-07 14:50 | WPDNEURORHBP ---
Subjective Date/time seen: 01/07/20 14:50 Interval history: this 44-year-old diabetic male is here because of right BKA he is doing fairly well and the sugars are stable with holding his insulin he has also dialysis patient and the working well with them making progress denies any headache nausea vomiting chest pain shortness of breath fever chills sore throat Review of Systems Review of Systems: All systems reviewed & are unremarkable except as noted in HPI and below Functional Status Ambulation Ability Ability to Ambulate 10 Feet: Contact Guard Ambulation Assistive Devices: Walker, Standard Transfers Ability Ability to Transfer In/Out of Chair: Minimum Assistance X 1 Exam Const: General: comfortable and no acute distress HENMT: General nose exam: Normal nares present Mouth: Yes moist mucous membranes Eyes: General: appearance normal, both eyes and all related structures Neck: Neck: supple and no JVD Resp: Effort & Inspection: normal respiratory effort Auscultation: clear to auscultation bilaterally Cardio: Rate: regular rate Rhythm: regular rhythm GI: GI Palp: Yes Soft to palpation Auscultation: normal bowel sounds Skin: General skin exam: normal color and no rashes or lesions noted Neuro: Other: patient is awake alert will oriented the right BKA is clean is not any distress making excellent progress in the rehab Extrem: Other: right BKA is clean Psych: Mental Status: mental status grossly normal Objective Data Vital Signs Vital Signs: Vital Signs - 24 hr 01/06/20 14:52 01/06/20 15:00 01/06/20 15:15 Temperature Pulse Rate 60 62 61 Respiratory Rate Blood Pressure 146/62 H 157/74 H 150/79 H Pulse Oximetry 01/06/20 15:21 01/06/20 15:30 01/06/20 15:45 Temperature 36.3 C L Pulse Rate 63 62 62 Respiratory Rate 16 Blood Pressure 148/76 H 144/77 H 143/74 H Pulse Oximetry 01/06/20 16:00 01/06/20 16:25 01/06/20 16:30 Temperature Pulse Rate 62 62 62 Respiratory Rate Blood Pressure 150/76 H 156/80 H 159/78 H Pulse Oximetry 01/06/20 16:45 01/06/20 17:00 01/06/20 17:15 Temperature Pulse Rate 65 63 62 Respiratory Rate Blood Pressure 160/77 H 149/80 H 153/79 H Pulse Oximetry 01/06/20 17:30 01/06/20 17:51 01/06/20 17:59 Temperature 36.3 C L Pulse Rate 63 63 65 Respiratory Rate 16 Blood Pressure 146/62 H 162/85 H 178/85 H Pulse Oximetry 01/06/20 21:06 01/06/20 22:00 01/07/20 05:12 Temperature 36.3 C L 36.6 C Pulse Rate 62 61 70 Respiratory Rate 18 18 Blood Pressure 148/57 H 150/66 H Pulse Oximetry 97 96 01/07/20 08:04 01/07/20 14:00 Temperature 36.4 C L Pulse Rate 70 64 Respiratory Rate 20 Blood Pressure 128/51 L Pulse Oximetry 94 Intake/Output Intake/Output: Intake & Output 01/04/20 01/05/20 01/06/20 01/07/20 23:59 23:59 23:59 23:59 Intake Total 0468 687 9079 360 Output Total 2500 Balance 1080 720 -1180 360 Meds/Results Medications: Active Medications Generic Name Dose Route Start Last Admin Trade Name Freq PRN Reason Stop Dose Admin Hydrocodone Bitart/Acetaminophen 1 tab 01/02/20 17:12 [place] 5-325 Mg PO PRN PRN Pain (Scale Score 7-10) Amlodipine Besylate 10 mg 01/03/20 09:00 01/07/20 08:04 Norvasc PO 10 mg DAILY STEVEN Administration Atorvastatin Calcium 80 mg 01/02/20 17:20 01/06/20 21:06 Lipitor PO 80 mg HS STEVEN Administration Calcium Carbonate 500 mg 01/03/20 08:00 01/07/20 12:45 Oscal 500 Mg PO 500 mg TIDWM STEVEN Administration Carvedilol 37.5 mg 01/02/20 21:00 01/07/20 08:04 Coreg PO 37.5 mg Q12HR STEVEN Administration Clopidogrel Bisulfate 75 mg 01/03/20 09:00 01/07/20 08:14 Plavix PO 75 mg DAILY STEVEN Administration Dextrose 12.5 gm 01/02/20 15:41 Dextrose 50% Syringe IV PUSH PRN PRN Hypoglycemia Protocol Docusate Sodium 100 mg 01/02/20 17:25 01/07/20 08:14 Colace Capsule PO 100 mg
[2020-01-07 17:11] LABS: Glucose Point of Care 126 (65-105)
[2020-01-07 20:00] LABS: Glucose Point of Care 116 (65-105)
[2020-01-07 20:40] VITALS: PULSE 68
[2020-01-07] MEDS: ATORVASTATIN 40 MG TABLET 80 MG PO (20:40)
[2020-01-07 21:21] VITALS: BP 153/72; PULSE 61; RESP 18; TEMP 36.6; O2SAT 98
[2020-01-08] VITALS (22 sets, daily range): BP systolic 156–186; BP diastolic 64–90; PULSE 61–72; RESP 18–20; TEMP 36.3–37.1; O2SAT 98–100
[2020-01-08 06:12] LABS: Glucose Point of Care 107 (65-105)
[2020-01-08] MEDS: CALCIUM CARBONATE (OSCAL) 500 MG TABLET PO ×3 (09:32→17:49)
[2020-01-08] MEDS: amLODIPine BESYLATE 5 MG TABLET 10 MG PO (09:33)
[2020-01-08] MEDS: carvediloL 12.5 MG TABLET 37.5 MG PO ×2 (09:33→23:38)
[2020-01-08] MEDS: SEVELAMER CARBONATE 800 MG TABLET PO ×3 (09:33→17:50)
[2020-01-08] MEDS: DOCUSATE SODIUM 100 MG CAPSULE PO ×2 (09:34→17:49)
[2020-01-08] MEDS: CLOPIDOGREL BISULFATE 75 MG TABLET PO (09:34)
[2020-01-08] MEDS: CHOLECALCIFEROL 1,000 UNITS TABLET 5000 UNITS PO (09:34)
[2020-01-08] MEDS: GABAPENTIN 300 MG CAPSULE PO ×3 (09:34→17:49)
[2020-01-08] MEDS: lisinopriL 20 MG TABLET 40 MG PO (09:35)
[2020-01-08] MEDS: OMEGA 3 POLYUNSAT FATTY ACIDS 1 GM CAP 2 GM PO ×2 (09:35→17:50)
[2020-01-08] MEDS: hydrALAZINE HCL 50 MG TABLET 100 MG PO ×3 (09:35→17:49)
--- NOTE | 2020-01-08 11:44 | PCDIET ---
Nutrition Follow-Up Complete: Nutrition Diagnosis: Increase protein need r/t wound healing as evidence by daily needs of 136g to promote adequate wound healing. Nutrition Goal: Intake of 75% of meal and supplement with focus on protein foods and vitamin A/C rich fruits and veggies to promote optimal wound healing Goal met. Patient consuming 100% of most meals on renal dialysis, diabetic diet with Jovan BID which is appropriate. Last recorded weight is 103.5 kg, decreased from last review. Patient on restricted diet with continued fluid removal in dialysis. Bowel Motility: +BM today per nursing flowsheet. Labs Reviewed: Glu (107) Meds Noted: Oscal, Colace, Retacrit, Lovaza, Lasix, Lantus, Iron Sucrose, Nifirex-150, Renvela, Vitamin D Additional Notes: Right leg incision present post-BKA. No other skin breakdown documented. Will continue to monitor with same goal. Nutrition Monitoring and Evaluation: Follow up in 7 days.
[2020-01-08 12:09] LABS: Glucose Point of Care 105 (65-105)
[2020-01-08 13:29] LABS: Anion Gap 13 mmol/L (8-16); Blood Urea Nitrogen 92 mg/dL (9-20); Calcium 9.5 mg/dL (8.4-10.2); Carbon Dioxide 25 mmol/L (22-30); Chloride 102 mmol/L (98-107); Estimated CRCL calculation 10 ml/min; Estimated Glomerular Filt Rate 6; Glucose 123 mg/dL (75-110); Phosphorus 5.2 mg/dL (2.5-4.5); Potassium 5.5 mmol/L (3.4-5.0); Sodium 140 mmol/L (137-145)
--- NOTE | 2020-01-08 15:28 | P.PNNP_ITS ---
Progress Note: A&P Assessment and Plan (1) End stage renal disease: Code(s): N18.6 - End stage renal disease Status: Chronic Assessment and Plan: * HD today and continue M// schedule * follow electrolytes, volume status, and clearance (2) Status post below knee amputation of right lower extremity: Code(s): Z89.511 - Acquired absence of right leg below knee Status: Acute Assessment and Plan: * local wound care * PT/OT/rehab (3) Anemia: Code(s): D64.9 - Anemia, unspecified Status: Chronic Assessment and Plan: * due to ESRD, recent operative intervention, and iron deficiency * IV venofer with HD (200mg x 5 doses) * Epogen with HD * follow trend of H/H (4) Hypertension: Code(s): I10 - Essential (primary) hypertension Status: Acute Assessment and Plan: * reasonable control at this time * follow trend of hemodynamics (5) Renal osteodystrophy: Code(s): N25.0 - Renal osteodystrophy Status: Chronic Assessment and Plan: * calcium and PTH acceptable * phosphorus elevated by last check * started on renvela as phosphate binder * adjust medications based on paramenters (6) Diabetes: Code(s): E11.9 - Type 2 diabetes mellitus without complications Status: Acute Assessment and Plan: * follow accuchecks * resume Lantus and SSI Will continue to follow. Subjective Date/time seen: 01/08/20 15:28 Seems to be doing well; participating with therapy as tolerated; no apparent distress noted; no events overnight or earlier this AM. Exam Narrative: Exam Narrative: General: WD/WN male/female in NAD Heart: normal S1 and S2; no rub Lungs: clear to auscultation Abdomen: soft, nontender, nondistended, positive bowel sounds Extremities: no cyanosis or clubbing; no edema; s/p bilateral BKAs Skin: no rash or nodules Objective Data Vital Signs Vital Signs: Vital Signs Temp Pulse Resp BP Pulse Ox 01/08/20 09:33 70 01/08/20 06:00 36.4 C L 70 18 156/64 H 98 01/07/20 21:21 36.6 C 61 18 153/72 H 98 01/07/20 20:40 68 Intake/Output Intake/Output: Intake & Output 01/05/20 01/06/20 01/07/20 01/08/20 23:59 23:59 23:59 23:59 Intake Total 720 1320 600 480 Output Total 2500 Balance 720 -1180 600 480 Meds/Results Medications: Active Medications Generic Name Dose Route Start Last Admin Trade Name Freq PRN Reason Stop Dose Admin Hydrocodone Bitart/Acetaminophen 1 tab 01/02/20 17:12 [place] 5-325 Mg PO PRN PRN Pain (Scale Score 7-10) Amlodipine Besylate 10 mg 01/03/20 09:00 01/08/20 09:33 Norvasc PO 10 mg DAILY STEVEN Administration Atorvastatin Calcium 80 mg 01/02/20 17:20 01/07/20 20:40 Lipitor PO 80 mg HS STEVEN Administration Calcium Carbonate 500 mg 01/03/20 08:00 01/08/20 12:39 Oscal 500 Mg PO 500 mg TIDWM STVEEN Administration Carvedilol 37.5 mg 01/02/20 21:00 01/08/20 09:33 Coreg PO 37.5 mg Q12HR STEVEN Administration Clopidogrel Bisulfate 75 mg 01/03/20 09:00 01/08/20 09:34 Plavix PO 75 mg DAILY STEVEN Administration Dextrose 12.5 g
--- NOTE | 2020-01-08 15:28 | PM.PNNEP ---
Progress Note: A&P Assessment and Plan (1) End stage renal disease: Code(s): N18.6 - End stage renal disease Status: Chronic Assessment and Plan: HD today and continue M/W/F schedule follow electrolytes, volume status, and clearance (2) Status post below knee amputation of right lower extremity: Code(s): Z89.511 - Acquired absence of right leg below knee Status: Acute Assessment and Plan: local wound care PT/OT/rehab (3) Anemia: Code(s): D64.9 - Anemia, unspecified Status: Chronic Assessment and Plan: due to ESRD, recent operative intervention, and iron deficiency IV venofer with HD (200mg x 5 doses) Epogen with HD follow trend of H/H (4) Hypertension: Code(s): I10 - Essential (primary) hypertension Status: Acute Assessment and Plan: reasonable control at this time follow trend of hemodynamics (5) Renal osteodystrophy: Code(s): N25.0 - Renal osteodystrophy Status: Chronic Assessment and Plan: calcium and PTH acceptable phosphorus elevated by last check started on renvela as phosphate binder adjust medications based on paramenters (6) Diabetes: Code(s): E11.9 - Type 2 diabetes mellitus without complications Status: Acute Assessment and Plan: follow accuchecks resume Lantus and SSI Will continue to follow. Subjective Date/time seen: 01/08/20 15:28 Seems to be doing well; participating with therapy as tolerated; no apparent distress noted; no events overnight or earlier this AM. Exam Narrative: Exam Narrative: General: WD/WN male/female in NAD Heart: normal S1 and S2; no rub Lungs: clear to auscultation Abdomen: soft, nontender, nondistended, positive bowel sounds Extremities: no cyanosis or clubbing; no edema; s/p bilateral BKAs Skin: no rash or nodules Objective Data Vital Signs Vital Signs: Vital Signs Temp Pulse Resp BP Pulse Ox 01/08/20 09:33 70 01/08/20 06:00 36.4 C L 70 18 156/64 H 98 01/07/20 21:21 36.6 C 61 18 153/72 H 98 01/07/20 20:40 68 Intake/Output Intake/Output: Intake & Output 01/05/20 01/06/20 01/07/20 01/08/20 23:59 23:59 23:59 23:59 Intake Total 720 1320 600 480 Output Total 2500 Balance 720 -1180 600 480 Meds/Results Medications: Active Medications Generic Name Dose Route Start Last Admin Trade Name Freq PRN Reason Stop Dose Admin Hydrocodone Bitart/Acetaminophen 1 tab 01/02/20 17:12 [place] 5-325 Mg PO PRN PRN Pain (Scale Score 7-10) Amlodipine Besylate 10 mg 01/03/20 09:00 01/08/20 09:33 Norvasc PO 10 mg DAILY STEVEN Administration Atorvastatin Calcium 80 mg 01/02/20 17:20 01/07/20 20:40 Lipitor PO 80 mg HS STEVEN Administration Calcium Carbonate 500 mg 01/03/20 08:00 01/08/20 12:39 Oscal 500 Mg PO 500 mg TIDWM STEVEN Administration Carvedilol 37.5 mg 01/02/20 21:00 01/08/20 09:33 Coreg PO 37.5 mg Q12HR STEVEN Administration Clopidogrel Bisulfate 75 mg 01/03/20 09:00 01/08/20 09:34 Plavix PO 75 mg DAILY STEVEN Administration Dextrose 12.5 gm 01/02/20 15:41 Dextrose 50% Syringe IV PUSH PRN PRN Hypoglycemia Protocol Docusate Sodium 100 mg 01/02/20 17:25 01/08/20 09:34 Colace Capsule PO 100 mg BID STEVEN Administration Epoetin Chan-epbx 10,000 units 01/08/20 20:06 Retacrit IV PUSH 01/08/20 20:07 ONCE ONE Fish Oil 2 gm 01/02/20 17:25 01/08/20 09:35 Lovaza PO 2 gm BID STEVEN Administration Furosemide 40 mg 01/04/20 09:00 01/07/20 08:06 Lasix Tablet PO 40 mg [email or web address] STEVEN Administration Gabapentin 300 mg 01/02/20 17:25 01/08/20 12:39 Neurontin PO 300 mg TID STEVEN Administration Glucagon 1 mg 01/02/20 15:41 Glucagon For Inj IM PRN PRN Hypoglycemia Protocol Glucose 15 gm 01/02/20 15:41 Glutose 15 PO PRN PRN Hypog
--- NOTE | 2020-01-08 15:37 | WPDNEURORHBP ---
Subjective Date/time seen: 01/08/20 15:37 Interval history: this 44-year-old gentleman is here because of right BKA has significant underlying medical issues including diabetes mellitus with peripheral neuropathy and also complications from the diabetes is doing fairly well and near goals for acute rehab denies any headache nausea vomiting chest pain shortness of breath fever chills sore throat Review of Systems Review of Systems: All systems reviewed & are unremarkable except as noted in HPI and below Functional Status Ambulation Ability Ability to Ambulate 10 Feet: Contact Guard Ambulation Assistive Devices: Walker, Standard Transfers Ability Ability to Transfer In/Out of Chair: Minimum Assistance X 1 Exam Const: General: comfortable and no acute distress HENMT: General nose exam: Normal nares present Mouth: Yes moist mucous membranes Eyes: General: appearance normal, both eyes and all related structures Neck: Neck: supple and no JVD Resp: Effort & Inspection: normal respiratory effort Auscultation: clear to auscultation bilaterally Cardio: Rate: regular rate Rhythm: regular rhythm GI: GI Palp: Yes Soft to palpation Auscultation: normal bowel sounds Skin: General skin exam: normal color and no rashes or lesions noted Neuro: Other: patient is awake alert well oriented has evidence of the right BKA and evidence of neuropathy and of course peripheral vascular disease Extrem: Other: right BKA is clean Psych: Mental Status: mental status grossly normal Objective Data Vital Signs Vital Signs: Vital Signs - 24 hr 01/07/20 20:40 01/07/20 21:21 01/08/20 06:00 Temperature 36.6 C 36.4 C L Pulse Rate 68 61 70 Respiratory Rate 18 18 Blood Pressure 153/72 H 156/64 H Pulse Oximetry 98 98 01/08/20 09:33 Temperature Pulse Rate 70 Respiratory Rate Blood Pressure Pulse Oximetry Intake/Output Intake/Output: Intake & Output 01/05/20 01/06/20 01/07/20 01/08/20 23:59 23:59 23:59 23:59 Intake Total 720 1320 600 480 Output Total 2500 Balance 720 -1180 600 480 Meds/Results Medications: Active Medications Generic Name Dose Route Start Last Admin Trade Name Freq PRN Reason Stop Dose Admin Hydrocodone Bitart/Acetaminophen 1 tab 01/02/20 17:12 [place] 5-325 Mg PO PRN PRN Pain (Scale Score 7-10) Amlodipine Besylate 10 mg 01/03/20 09:00 01/08/20 09:33 Norvasc PO 10 mg DAILY STEVEN Administration Atorvastatin Calcium 80 mg 01/02/20 17:20 01/07/20 20:40 Lipitor PO 80 mg HS STEVEN Administration Calcium Carbonate 500 mg 01/03/20 08:00 01/08/20 12:39 Oscal 500 Mg PO 500 mg TIDWM STEVEN Administration Carvedilol 37.5 mg 01/02/20 21:00 01/08/20 09:33 Coreg PO 37.5 mg Q12HR STEVEN Administration Clopidogrel Bisulfate 75 mg 01/03/20 09:00 01/08/20 09:34 Plavix PO 75 mg DAILY STEVEN Administration Dextrose 12.5 gm 01/02/20 15:41 Dextrose 50% Syringe IV PUSH PRN PRN Hypoglycemia Protocol Docusate Sodium 100 mg 01/02/20 17:25 01/08/20 09:34 Colace Capsule PO 100 mg BID STEVEN Administration Epoetin Chan-epbx 10,000 units 01/08/20 20:06 Retacrit IV PUSH 01/08/20 20:07 ONCE ONE Fish Oil 2 gm 01/02/20 17:25 01/08/20 09:35 Lovaza PO 2 gm BID STEVEN Administration Furosemide 40 mg 01/04/20 09:00 01/07/20 08:06 Lasix Tablet PO 40 mg [email or web address] STEVEN Administration Gabapentin 300 mg 01/02/20 17:25 01/08/20 12:39 Neurontin PO 300 mg TID STEVEN Administration Glucagon 1 mg 01/02/20 15:41 Glucagon For Inj IM PRN PRN Hypoglycemia Protocol Glucose 15 gm 01/02/20 15:41 Glutose 15 PO PRN PRN Hypoglycemia Protocol Hydralazine HCl 100 mg 01/02/20 17:25 01/08/20 12:39 Apresoline Tablet PO 100 mg TID STEVEN Administration Dextrose 1,000 mls @ 100 mls/hr 01/02/20 15:41 Dextrose 5% 1,000 Ml IVPB PRN PRN Hypogl
[2020-01-08 18:04] LABS: Glucose Point of Care 131 (65-105)
[2020-01-08] MEDS: EPOETIN ALFA-EPBX 10,000 UNITS/ML VIAL 10000 UNITS IV PUSH (20:44)
[2020-01-08] MEDS: IRON SUCROSE COMPLEX 200 MG in SODIUM CHLORIDE 0.9% IV 50 ML 220 MG IVPB (22:15)
[2020-01-08] MEDS: ATORVASTATIN 40 MG TABLET 80 MG PO (23:39)
[2020-01-09] VITALS (8 sets, daily range): BP systolic 120–147; BP diastolic 56–64; PULSE 64–71; RESP 16–20; TEMP 36.3–37.1; O2SAT 96–100
--- NOTE | 2020-01-09 05:36 | PCHDNOTE ---
1915 pt taken down for dialysis per bed on01/07.
[2020-01-09 07:12] LABS: Glucose Point of Care 104 (65-105)
[2020-01-09] MEDS: CALCIUM CARBONATE (OSCAL) 500 MG TABLET PO ×3 (10:02→17:32)
[2020-01-09] MEDS: SEVELAMER CARBONATE 800 MG TABLET PO ×3 (10:07→17:32)
[2020-01-09] MEDS: carvediloL 12.5 MG TABLET 37.5 MG PO ×2 (10:09→21:24)
[2020-01-09] MEDS: amLODIPine BESYLATE 5 MG TABLET 10 MG PO (10:09)
[2020-01-09] MEDS: CHOLECALCIFEROL 1,000 UNITS TABLET 5000 UNITS PO (10:10)
[2020-01-09] MEDS: CLOPIDOGREL BISULFATE 75 MG TABLET PO (10:10)
[2020-01-09] MEDS: GABAPENTIN 300 MG CAPSULE PO ×3 (10:11→17:32)
[2020-01-09] MEDS: DOCUSATE SODIUM 100 MG CAPSULE PO ×2 (10:11→17:32)
[2020-01-09] MEDS: FUROSEMIDE 40 MG TABLET PO (10:11)
[2020-01-09] MEDS: hydrALAZINE HCL 50 MG TABLET 100 MG PO ×3 (10:11→17:32)
[2020-01-09] MEDS: lisinopriL 20 MG TABLET 40 MG PO (10:12)
[2020-01-09] MEDS: OMEGA 3 POLYUNSAT FATTY ACIDS 1 GM CAP 2 GM PO ×2 (10:13→17:32)
[2020-01-09 11:39] LABS: Glucose Point of Care 106 (65-105)
[2020-01-09 18:00] LABS: Glucose Point of Care 112 (65-105)
[2020-01-09] MEDS: ATORVASTATIN 40 MG TABLET 80 MG PO (21:26)
[2020-01-09 22:40] LABS: Glucose Point of Care 104 (65-105)
[2020-01-10] VITALS (17 sets, daily range): BP systolic 113–181; BP diastolic 56–85; PULSE 65–73; RESP 16–20; TEMP 36.1–37; O2SAT 96–98
[2020-01-10 05:08] LABS: Basophils Absolute Auto 0.1 K/mm3 (0.0-0.1); Basophils Percent Auto 1.2 % (0.2-1.2); Eosinophils Absolute Auto 0.4 K/mm3 (0-0.3); Eosinophils Percent Auto 4.3 % (0-4.4); Hematocrit 29.2 % (42.0-52.0); Hemoglobin 9.2 g/dL (14.0-18.0); Immature Granulocyte Absolute 0.03 K/mm3 (0.00-0.031); Immature Granulocyte Percent A 0.3 % (0-0.5); Lymphocytes Percent Auto 38.9 % (18.3-44.2); Mean Corpuscular HGB Conc 31.5 g/dl (32-36); Mean Corpuscular Hemoglobin 25.8 pg (26-34); Mean Corpuscular Volume 81.8 fl (80-100); Mean Platelet Volume 8.7 fl (7.4-10.4); Monocytes Absolute Auto 0.9 K/mm3 (0.1-0.6); Neutrophils Absolute Auto 4.4 K/mm3 (1.3-6.7); Neutrophils Percent Auto 46.3 % (45.5-73.1); Platelet Count Result 378 k/mm3 (150-375); Red Blood Count 3.57 M/mm3 (4.6-6.20); Red Cell Distribution Width 17.1 % (11.5-14.5); White Blood Count 9.5 K/mm3 (4.5-10.0)
[2020-01-10 05:32] LABS: Anion Gap 11 mmol/L (8-16); Blood Urea Nitrogen 72 mg/dL (9-20); Calcium 9.4 mg/dL (8.4-10.2); Carbon Dioxide 29 mmol/L (22-30); Chloride 100 mmol/L (98-107); Estimated CRCL calculation 12 ml/min; Estimated Glomerular Filt Rate 7; Glucose 110 mg/dL (75-110); Sodium 140 mmol/L (137-145)
[2020-01-10 06:34] LABS: Glucose Point of Care 113 (65-105)
[2020-01-10] MEDS: CLOPIDOGREL BISULFATE 75 MG TABLET PO (08:58)
[2020-01-10] MEDS: SEVELAMER CARBONATE 800 MG TABLET PO ×3 (08:58→17:54)
[2020-01-10] MEDS: carvediloL 12.5 MG TABLET 37.5 MG PO (08:58)
[2020-01-10] MEDS: CHOLECALCIFEROL 1,000 UNITS TABLET 5000 UNITS PO (08:58)
[2020-01-10] MEDS: OMEGA 3 POLYUNSAT FATTY ACIDS 1 GM CAP 2 GM PO ×2 (08:58→17:53)
[2020-01-10] MEDS: CALCIUM CARBONATE (OSCAL) 500 MG TABLET PO ×3 (08:58→17:54)
[2020-01-10] MEDS: hydrALAZINE HCL 50 MG TABLET 100 MG PO ×3 (08:58→17:53)
[2020-01-10] MEDS: GABAPENTIN 300 MG CAPSULE PO ×3 (08:58→17:53)
[2020-01-10] MEDS: lisinopriL 20 MG TABLET 40 MG PO (08:58)
[2020-01-10] MEDS: DOCUSATE SODIUM 100 MG CAPSULE PO ×2 (08:59→17:53)
[2020-01-10] MEDS: amLODIPine BESYLATE 5 MG TABLET 10 MG PO (08:59)
[2020-01-10 11:41] LABS: Glucose Point of Care 121 (65-105)
--- NOTE | 2020-01-10 13:30 | WPDNEURORHBP ---
Subjective Date/time seen: 01/10/20 13:30 Interval history: this 44-year-old diabetic male has been here after having had a right BKA is done well in acute rehab has had dialysis Monday is going to be discharged tomorrow medications will be reconciled denies any headache nausea vomiting chest pain shortness of breath fever chills sore throat Review of Systems Review of Systems: All systems reviewed & are unremarkable except as noted in HPI and below Functional Status Ambulation Ability Ability to Ambulate 10 Feet: Contact Guard Ambulation Assistive Devices: Walker, Standard Transfers Ability Ability to Transfer In/Out of Chair: Independent Exam Const: General: comfortable and no acute distress HENMT: General nose exam: Normal nares present Mouth: Yes moist mucous membranes Eyes: General: appearance normal, both eyes and all related structures Neck: Neck: supple and no JVD Resp: Effort & Inspection: normal respiratory effort Auscultation: clear to auscultation bilaterally Cardio: Rate: regular rate Rhythm: regular rhythm GI: GI Palp: Yes Soft to palpation Auscultation: normal bowel sounds Skin: General skin exam: normal color and no rashes or lesions noted Neuro: Other: patient is awake alert well oriented and has improved in over rehab quite well Extrem: Other: right BKA is clean Psych: Mental Status: mental status grossly normal Objective Data Vital Signs Vital Signs: Vital Signs - 24 hr 01/09/20 14:00 01/09/20 21:10 01/09/20 21:24 Temperature 37.1 C Pulse Rate 66 64 66 Respiratory Rate 16 18 Blood Pressure 140/56 L Pulse Oximetry 96 97 01/09/20 22:00 01/10/20 06:00 01/10/20 08:58 Temperature 36.8 C 36.2 C L Pulse Rate 64 65 65 Respiratory Rate 18 18 Blood Pressure 127/58 L 140/62 Pulse Oximetry 97 96 Intake/Output Intake/Output: Intake & Output 01/07/20 01/08/20 01/09/20 01/10/20 23:59 23:59 23:59 23:59 Intake Total 350 441 0168 790 Output Total 3001 300 Balance 600 -2281 1200 490 Meds/Results Medications: Active Medications Generic Name Dose Route Start Last Admin Trade Name Freq PRN Reason Stop Dose Admin Hydrocodone Bitart/Acetaminophen 1 tab 01/02/20 17:12 [place] 5-325 Mg PO PRN PRN Pain (Scale Score 7-10) Amlodipine Besylate 10 mg 01/03/20 09:00 01/10/20 08:59 Norvasc PO 10 mg DAILY STEVEN Administration Atorvastatin Calcium 80 mg 01/02/20 17:20 01/09/20 21:26 Lipitor PO 80 mg HS STEVEN Administration Calcium Carbonate 500 mg 01/03/20 08:00 01/10/20 12:35 Oscal 500 Mg PO 500 mg TIDWM STEVEN Administration Carvedilol 37.5 mg 01/02/20 21:00 01/10/20 08:58 Coreg PO 37.5 mg Q12HR STEVEN Administration Clopidogrel Bisulfate 75 mg 01/03/20 09:00 01/10/20 08:58 Plavix PO 75 mg DAILY STEVEN Administration Dextrose 12.5 gm 01/02/20 15:41 Dextrose 50% Syringe IV PUSH PRN PRN Hypoglycemia Protocol Docusate Sodium 100 mg 01/02/20 17:25 01/10/20 08:59 Colace Capsule PO 100 mg BID STEVEN Administration Fish Oil 2 gm 01/02/20 17:25 01/10/20 08:58 Lovaza PO 2 gm BID STEVEN Administration Furosemide 40 mg 01/04/20 09:00 01/09/20 10:11 Lasix Tablet PO 40 mg [email or web address] STEVEN Administration Gabapentin 300 mg 01/02/20 17:25 01/10/20 12:35 Neurontin PO 300 mg TID STEVEN Administration Glucagon 1 mg 01/02/20 15:41 Glucagon For Inj IM PRN PRN Hypoglycemia Protocol Glucose 15 gm 01/02/20 15:41 Glutose 15 PO PRN PRN Hypoglycemia Protocol Hydralazine HCl 100 mg 01/02/20 17:25 01/10/20 12:35 Apresoline Tablet PO 100 mg TID STEVEN Administration Dextrose 1,000 mls @ 100 mls/hr 01/02/20 15:41 Dextrose 5% 1,000 Ml IVPB PRN PRN Hypoglycemia Protocol Albumin Human 50 mls @ 999 mls/hr 01/03/20 07:09 [place] IVPB 02/02/20 07:10 Q10M PRN HYPOTENSI
--- NOTE | 2020-01-10 15:59 | P.PNNP_ITS ---
Progress Note: A&P Assessment and Plan (1) End stage renal disease: Code(s): N18.6 - End stage renal disease Status: Chronic Assessment and Plan: * HD today and continue M/W/ schedule * follow electrolytes, volume status, and clearance (2) Status post below knee amputation of right lower extremity: Code(s): Z89.511 - Acquired absence of right leg below knee Status: Acute Assessment and Plan: * local wound care * PT/OT/rehab (3) Anemia: Code(s): D64.9 - Anemia, unspecified Status: Chronic Assessment and Plan: * due to ESRD, recent operative intervention, and iron deficiency * IV venofer with HD (200mg x 5 doses) * Epogen with HD * follow trend of H/H (4) Hypertension: Code(s): I10 - Essential (primary) hypertension Status: Acute Assessment and Plan: * reasonable control at this time * follow trend of hemodynamics (5) Renal osteodystrophy: Code(s): N25.0 - Renal osteodystrophy Status: Chronic Assessment and Plan: * calcium and PTH acceptable * phosphorus elevated by last check * started on renvela as phosphate binder * adjust medications based on paramenters (6) Diabetes: Code(s): E11.9 - Type 2 diabetes mellitus without complications Status: Acute Assessment and Plan: * follow accuchecks * resume Lantus and SSI Will continue to follow. Subjective Date/time seen: 01/10/20 15:59 No new issues or problems to report; happy about planned discharge tomorrow; no apparent distress voiced at the time of my visit; dialysis planned later this evening. Exam Narrative: Exam Narrative: General: WD/WN male/female in NAD Heart: normal S1 and S2; no rub Lungs: clear to auscultation Abdomen: soft, nontender, nondistended, positive bowel sounds Extremities: no cyanosis or clubbing; no edema; s/p bilateral BKAs Skin: warm and dry Objective Data Vital Signs Vital Signs: Vital Signs Temp Pulse Resp BP Pulse Ox 01/10/20 14:00 36.4 C 67 18 113/56 L 98 01/10/20 08:58 65 01/10/20 06:00 36.2 C L 65 18 140/62 96 01/09/20 22:00 36.8 C 64 18 127/58 L 97 01/09/20 21:24 66 01/09/20 21:10 64 18 97 Intake/Output Intake/Output: Intake & Output 01/07/20 01/08/20 01/09/20 01/10/20 23:59 23:59 23:59 23:59 Intake Total 267 154 4994 1030 Output Total 3001 300 Balance 600 -2281 1200 730 Meds/Results Medications: Active Medications Generic Name Dose Route Start Last Admin Trade Name Freq PRN Reason Stop Dose Admin Hydrocodone Bitart/Acetaminophen 1 tab 01/02/20 17:12 [place] 5-325 Mg PO PRN PRN Pain (Scale Score 7-10) Amlodipine Besylate 10 mg 01/03/20 09:00 01/10/20 08:59 Norvasc PO 10 mg DAILY STEVEN Administration Atorvastatin Calcium 80 mg 01/02/20 17:20 01/09/20 21:26 Lipitor PO 80 mg HS STEVEN Administration Calcium Carbonate 500 mg 01/03/20 08:00 01/10/20 12:35 Oscal 500 Mg PO 500 mg TIDWM STEVEN Administration Carvedilol 37.5 mg 01/02/20 21:00 01/10/20 08:58 Coreg PO 37.5 mg Q12HR STEVEN Administration Clopidogrel Bisulfate 75
--- NOTE | 2020-01-10 15:59 | PM.PNNEP ---
Progress Note: A&P Assessment and Plan (1) End stage renal disease: Code(s): N18.6 - End stage renal disease Status: Chronic Assessment and Plan: HD today and continue M/W/F schedule follow electrolytes, volume status, and clearance (2) Status post below knee amputation of right lower extremity: Code(s): Z89.511 - Acquired absence of right leg below knee Status: Acute Assessment and Plan: local wound care PT/OT/rehab (3) Anemia: Code(s): D64.9 - Anemia, unspecified Status: Chronic Assessment and Plan: due to ESRD, recent operative intervention, and iron deficiency IV venofer with HD (200mg x 5 doses) Epogen with HD follow trend of H/H (4) Hypertension: Code(s): I10 - Essential (primary) hypertension Status: Acute Assessment and Plan: reasonable control at this time follow trend of hemodynamics (5) Renal osteodystrophy: Code(s): N25.0 - Renal osteodystrophy Status: Chronic Assessment and Plan: calcium and PTH acceptable phosphorus elevated by last check started on renvela as phosphate binder adjust medications based on paramenters (6) Diabetes: Code(s): E11.9 - Type 2 diabetes mellitus without complications Status: Acute Assessment and Plan: follow accuchecks resume Lantus and SSI Will continue to follow. Subjective Date/time seen: 01/10/20 15:59 No new issues or problems to report; happy about planned discharge tomorrow; no apparent distress voiced at the time of my visit; dialysis planned later this evening. Exam Narrative: Exam Narrative: General: WD/WN male/female in NAD Heart: normal S1 and S2; no rub Lungs: clear to auscultation Abdomen: soft, nontender, nondistended, positive bowel sounds Extremities: no cyanosis or clubbing; no edema; s/p bilateral BKAs Skin: warm and dry Objective Data Vital Signs Vital Signs: Vital Signs Temp Pulse Resp BP Pulse Ox 01/10/20 14:00 36.4 C 67 18 113/56 L 98 01/10/20 08:58 65 01/10/20 06:00 36.2 C L 65 18 140/62 96 01/09/20 22:00 36.8 C 64 18 127/58 L 97 10/01/20 21:24 66 01/09/20 21:10 64 18 97 Intake/Output Intake/Output: Intake & Output 01/07/20 01/08/20 01/09/20 01/10/20 23:59 23:59 23:59 23:59 Intake Total 366 554 6846 1030 Output Total 3001 300 Balance 600 -2281 1200 730 Meds/Results Medications: Active Medications Generic Name Dose Route Start Last Admin Trade Name Freq PRN Reason Stop Dose Admin Hydrocodone Bitart/Acetaminophen 1 tab 01/02/20 17:12 [place] 5-325 Mg PO PRN PRN Pain (Scale Score 7-10) Amlodipine Besylate 10 mg 01/03/20 09:00 01/10/20 08:59 Norvasc PO 10 mg DAILY STEVEN Administration Atorvastatin Calcium 80 mg 01/02/20 17:20 01/09/20 21:26 Lipitor PO 80 mg HS STEVEN Administration Calcium Carbonate 500 mg 01/03/20 08:00 01/10/20 12:35 Oscal 500 Mg PO 500 mg TIDWM STEVEN Administration Carvedilol 37.5 mg 01/02/20 21:00 01/10/20 08:58 Coreg PO 37.5 mg Q12HR STEVEN Administration Clopidogrel Bisulfate 75 mg 01/03/20 09:00 01/10/20 08:58 Plavix PO 75 mg DAILY STEVEN Administration Dextrose 12.5 gm 01/02/20 15:41 Dextrose 50% Syringe IV PUSH PRN PRN Hypoglycemia Protocol Docusate Sodium 100 mg 01/02/20 17:25 01/10/20 08:59 Colace Capsule PO 100 mg BID STEVEN Administration Fish Oil 2 gm 01/02/20 17:25 01/10/20 08:58 Lovaza PO 2 gm BID STEVEN Administration Furosemide 40 mg 01/04/20 09:00 01/09/20 10:11 Lasix Tablet PO 40 mg [email or web address]@0900 STEVEN Administration Gabapentin 300 mg 01/02/20 17:25 01/10/20 12:35 Neurontin PO 300 mg TID STEVEN Administration Glucagon 1 mg 01/02/20 15:41 Glucagon For Inj IM PRN PRN Hypoglycemia Protocol Glucose 15 gm 01/02/20 15:41 Glutose 15 PO PRN PRN
[2020-01-10 16:58] LABS: Glucose Point of Care 102 (65-105)
--- NOTE | 2020-01-10 20:44 | PC.NURSE ---
patient off the floor to dialysis
[2020-01-10] MEDS: SODIUM CHLORIDE 0.9% IV 1,000 ML 999 ML IV CONT (20:58)
[2020-01-10 21:41] LABS: Glucose Point of Care 115 (65-105)
[2020-01-10] MEDS: EPOETIN ALFA-EPBX 10,000 UNITS/ML VIAL 10000 UNITS IV PUSH (23:11)
[2020-01-10] MEDS: IRON SUCROSE COMPLEX 200 MG in SODIUM CHLORIDE 0.9% IV 50 ML 220 MG IVPB (23:11)
[2020-01-11 00:15] VITALS: BP 144/76; PULSE 64
[2020-01-11 00:26] VITALS: BP 123/67; PULSE 66
[2020-01-11 00:43] VITALS: BP 156/77; PULSE 66; RESP 16; TEMP 36.4
--- NOTE | 2020-01-11 00:45 | PC.NURSE ---
patient returned to floor 0045 from dialysis
[2020-01-11] MEDS: ATORVASTATIN 40 MG TABLET 80 MG PO (00:50)
[2020-01-11 00:51] VITALS: PULSE 68
[2020-01-11] MEDS: carvediloL 12.5 MG TABLET 37.5 MG PO ×2 (00:51→08:52)
[2020-01-11 05:48] LABS: Glucose Point of Care 89 (65-105)
[2020-01-11 06:00] VITALS: BP 144/72; PULSE 62; RESP 18; TEMP 36; O2SAT 96
[2020-01-11] MEDS: CALCIUM CARBONATE (OSCAL) 500 MG TABLET PO ×2 (08:49→12:36)
[2020-01-11] MEDS: SEVELAMER CARBONATE 800 MG TABLET PO ×2 (08:49→12:36)
[2020-01-11] MEDS: amLODIPine BESYLATE 5 MG TABLET 10 MG PO (08:50)
[2020-01-11] MEDS: CHOLECALCIFEROL 1,000 UNITS TABLET 5000 UNITS PO (08:50)
[2020-01-11] MEDS: DOCUSATE SODIUM 100 MG CAPSULE PO (08:50)
[2020-01-11] MEDS: CLOPIDOGREL BISULFATE 75 MG TABLET PO (08:50)
[2020-01-11] MEDS: OMEGA 3 POLYUNSAT FATTY ACIDS 1 GM CAP 2 GM PO (08:51)
[2020-01-11] MEDS: FUROSEMIDE 40 MG TABLET PO (08:51)
[2020-01-11] MEDS: lisinopriL 20 MG TABLET 40 MG PO (08:51)
[2020-01-11] MEDS: hydrALAZINE HCL 50 MG TABLET 100 MG PO ×2 (08:51→12:36)
[2020-01-11] MEDS: GABAPENTIN 300 MG CAPSULE PO ×2 (08:51→12:36)
[2020-01-11 08:52] VITALS: PULSE 62
[2020-01-11 12:43] LABS: Glucose Point of Care 159 (65-105)
--- NOTE | 2020-01-15 12:15 | PM.DS ---
DS: Admitting Diagnosis Admitting Diagnosis Admitting Diagnosis: R BKA DS: Discharge Diagnosis Discharge Diagnosis (1) ESRD needing dialysis: Code(s): N18.6 - End stage renal disease; Z99.2 - Dependence on renal dialysis Status: Acute (2) Renal osteodystrophy: Code(s): N25.0 - Renal osteodystrophy Status: Chronic (3) Hypertension: Code(s): I10 - Essential (primary) hypertension Status: Acute (4) Status post below knee amputation of right lower extremity: Code(s): Z89.511 - Acquired absence of right leg below knee Status: Acute (5) Diabetes: Code(s): E11.9 - Type 2 diabetes mellitus without complications Status: Acute (6) CHF (congestive heart failure): Code(s): I50.9 - Heart failure, unspecified Status: Acute (7) PVD (peripheral vascular disease): Code(s): I73.9 - Peripheral vascular disease, unspecified Status: Chronic (8) Anemia: Code(s): D64.9 - Anemia, unspecified Status: Chronic (9) End stage renal disease: Code(s): N18.6 - End stage renal disease Status: Chronic DS: Summary Hospital Course Reason for hospitalization: this 44-year-old gentleman with the end-stage renal disease and being on dialysis with underlying diabetes mellitus came to us primarily after having had amputation of the right lower extremity she received the dialysis physical therapy of compression therapy and gait training and was able to be discharged to home with home health his diabetes was followed and changes were made in his insulin was recommended to follow up with the box chipper bacteriology research assistant and the primary care physician Hospital Course: after receiving the physical therapy of compression therapy gait training and the medical management the patient was able to achieved following independent measures Eating independent, oral hygiene independent, toileting independent, bathing independent, upper body dressing independent, lower body dressing independent, footwear independent, rolling in bed independent, sitting to lying independent, lying to sitting independent, sit to stand independent, chair transfers independent, toilet transfers independent, car transfers set up, walking 10 feet supervision, walking 50 feet patient was unable to, walking 150 feet patient was unable to, walking 10 feet uneven surfaces supervision, car versus step partial assistance, 4 steps patient was unable to, 12 states patient was unable to, picking objects supervision, wheelchair 50 feet independent, wheelchair 150 feet independent, Patient was sent home with home health to follow Time Spent with Patient Time attestation: Total time spent providing and/or coordinating discharge services: Exam Const: General: comfortable and no acute distress HENMT: General nose exam: Normal nares present Mouth: Yes dry mucous membranes Eyes: General: appearance normal, both eyes and all related structures Neck: Neck: supple and no JVD Resp: Effort & Inspection: normal respiratory effort Auscultation: clear to auscultation bilaterally Cardio: Rate: regular rate Rhythm: regular rhythm GI: GI Palp: Yes Soft to palpation Auscultation: normal bowel sounds Skin: General skin exam: normal color and no rashes or lesions noted Neuro: Other: patient is awake alert well oriented in time place and person follows all commands his generalized weakness related to diabetic neuropathy has improved and he was able to achieved the follow independent measures as mentioned above Extrem: Other: amputation site is clean and healthy Psych: Mental Status: mental status grossly normal Discharge Plan Discharge Attending physician on discharge: Jean Severino Consulting providers: Mehrdad Inman Discharging Clinician: Jean Severino Anticipated Discharge Date/Time: 01/11/20 13:33 Patient Disposition: Home Health Service Activity: may shower and no driving Diet: diab
== END 2020-01-11 13:30 | disposition home health service (06) | DRG 559 ==
PROVIDERS: Internal Medicine Nephrology; Admitting Provider Psychiatry & Neurology Neurology; PCP Family Medicine; Visit Provider Psychiatry & Neurology Neurology
DX: Z47.81 Encounter for orthopedic aftercare following surgical amputation (principal); N18.6 End stage renal disease; I13.2 Hypertensive heart and chronic kidney disease with heart failure and with stage 5 chronic kidney disease, or end stage renal disease; Z99.2 Dependence on renal dialysis; Z89.511 Acquired absence of right leg below knee; Z89.512 Acquired absence of left leg below knee; D63.1 Anemia in chronic kidney disease; E11.22 Type 2 diabetes mellitus with diabetic chronic kidney disease; E11.51 Type 2 diabetes mellitus with diabetic peripheral angiopathy without gangrene; E11.42 Type 2 diabetes mellitus with diabetic polyneuropathy; E11.319 Type 2 diabetes mellitus with unspecified diabetic retinopathy without macular edema; E78.5 Hyperlipidemia, unspecified; H40.9 Unspecified glaucoma; I50.9 Heart failure, unspecified; N25.0 Renal osteodystrophy; Z79.4 Long term (current) use of insulin; Z79.02 Long term (current) use of antithrombotics/antiplatelets
CPT/HCPCS: 36415; 80048; 80069; 80074; 82306; 82728; 83036; 83540; 83550; 83970; 85025; 86706; 97110; 97112; 97116; 97162; 97166; 97530; 97535; 97542; A9270; G0257; J1644; J1756; J1815; J7030; Q5106